=== PATIENT | female | born 1960 | race Caucasian/White ===

== ENCOUNTER 2020-06-02 10:00 | Outpatient (CLI) | payer OTHER, SELFPAY ==
--- NOTE | 2020-06-02 10:14 | MM_ITS ---
WS: [id number] BILATERAL DIGITAL SCREENING MAMMOGRAM WITH CAD CLINICAL INFORMATION: SCREENING HISTORY: Screening mammogram. No current complaints. COMPARISON: TECHNIQUE: Bilateral CC and MLO views. FINDINGS: Fatty-replaced breasts bilaterally. No suspicious focal mass, asymmetry, calcifications, or intern architect ural distortion. No evidence of malignancy. MM/[place] [id number] IMPRESSION: BI-RADS: 1-Negative FOLLOW UP: 1 Year Follow-up Recommend return to annual screening mammography.
== END 2020-06-02 10:01 | disposition home or self-care (01) ==
PROVIDERS: PCP Family Medicine; Visit Provider Family Medicine
DX: Z12.31 Encounter for screening mammogram for malignant neoplasm of breast (principal)
CPT/HCPCS: 77067

== ENCOUNTER 2021-09-06 10:25 | Outpatient (CLI) | payer OTHER, SELFPAY ==
--- NOTE | 2021-09-06 10:46 | MM_ITS ---
WS: [id number] BILATERAL 3D TOMOSYNTHESIS DIGITAL SCREENING MAMMOGRAPHY WITH CAD CLINICAL INFORMATION: SCREENING HISTORY: Screening mammogram. No current complaints. COMPARISON: June 02, 2020 TECHNIQUE: Bilateral CC and MLO views. FINDINGS: Scattered fibroglandular densities bilaterally. No suspicious focal mass, asymmetry, calcifications, or architectural distortion. No evidence of malignancy. MM/[place] [id number] IMPRESSION: BI-RADS: 1-Negative FOLLOW UP: 1 Year Follow-up Recommend return to annual screening mammography.
== END 2021-09-06 10:26 | disposition home or self-care (01) ==
LOC: RADSHAW 10:27
PROVIDERS: PCP Family Medicine; Visit Provider Family Medicine
DX: Z12.31 Encounter for screening mammogram for malignant neoplasm of breast (principal)
CPT/HCPCS: 77063; 77067

== ENCOUNTER 2022-09-12 09:04 | Outpatient (CLI) | payer OTHER, SELFPAY ==
--- NOTE | 2022-09-12 09:12 | MM_ITS ---
WS: [id number] Bilateral screening 3D tomosynthesis digital mammogram, 09/12/2022 Clinical Data: SCREENING Comparison: 09/06/2021, 06/02/2020, 05/12/2019, 03/29/2018, 04/13/2017, 03/02/2016, 02/24/2015, 02/04/2014, 05/01/2012, 06/22/2010, 03/12/2009, 02/26/2008, 01/22/2007. Findings: The breast parenchymal pattern shows fibroglandular tissue No spiculated masses or clustered calcific ations are seen. There are no secondary signs of carcinoma. MM/[place] [id number] Impression: 1. Negative bilateral mammogram unchanged. 2. Recommend annual screening mammograms. BIRADS: 1-Negative FOLLOW UP: 1 Year Follow-up The CAD checker cashier was used.
== END 2022-09-12 09:05 | disposition home or self-care (01) ==
LOC: RAD 09:08
PROVIDERS: PCP Family Medicine; Visit Provider Family Medicine
DX: Z12.31 Encounter for screening mammogram for malignant neoplasm of breast (principal)
CPT/HCPCS: 77063; 77067

== ENCOUNTER 2023-10-08 13:10 | Outpatient (CLI) | payer MEDICARE, SELFPAY ==
--- NOTE | 2023-10-08 13:14 | MM_ITS ---
WS: [id number] BILATERAL 3D TOMOSYNTHESIS DIGITAL SCREENING MAMMOGRAPHY WITH CAD CLINICAL INFORMATION: SCREENING HISTORY: Screening mammogram. No current complaints. COMPARISON: 2022 TECHNIQUE: Bilateral CC and MLO views. FINDINGS: Scattered fibroglandular densities bilaterally. No suspicious focal mass, asymmetry, calcifications, or architectural distortion. No evidence of malignancy. MM/[place] [id number] IMPRESSION: BI-RADS: 1-Negative FOLLOW UP: 1 Year Follow-up Recommend return to annual screening mammography.
== END 2023-10-08 13:11 | disposition home or self-care (01) ==
LOC: RAD 13:10
PROVIDERS: PCP Family Medicine; Visit Provider Family Medicine
DX: Z12.31 Encounter for screening mammogram for malignant neoplasm of breast (principal)
CPT/HCPCS: 77063; 77067

== ENCOUNTER 2024-10-13 11:34 | Outpatient (CLI) | payer MEDICARE, SELFPAY ==
--- NOTE | 2024-10-13 11:39 | MM_ITS ---
WS: [id number] BILATERAL 3D TOMOSYNTHESIS DIGITAL SCREENING MAMMOGRAM WITH CAD CLINICAL INFORMATION: SCREENING HISTORY: Screening mammogram. No current complaints. COMPARISON: 2023 TECHNIQUE: Bilateral CC and MLO views. FINDINGS: Fatty-replaced breasts bilaterally. No suspicious focal mass, asymmetry, calcifications, or architectural distortion. No evidence of malignancy. MM/MM scr BI tomosynthesis [id number] IMPRESSION: DENSITY: The breasts are almost entirely fatty. BI-RADS: 1 - Negative. FOLLOW UP: 1 Year Follow-up Recommend return to annual screening mammography.
== END 2024-10-13 11:35 | disposition home or self-care (01) ==
LOC: RAD 11:35
PROVIDERS: PCP Family Medicine; Visit Provider Family Medicine
DX: L82.1 Other seborrheic keratosis (principal); L81.4 Other melanin hyperpigmentation; H02.72 Madarosis of eyelid and periocular area; L57.8 Other skin changes due to chronic exposure to nonionizing radiation; X32.XXXA Exposure to sunlight, initial encounter; L57.0 Actinic keratosis; D18.01 Hemangioma of skin and subcutaneous tissue; Z80.8 Family history of malignant neoplasm of other organs or systems; D48.5 Neoplasm of uncertain behavior of skin
CPT/HCPCS: 11102; 17000; 77063; 77067; 99203

== ENCOUNTER 2024-10-14 14:25 | Outpatient (CLI) | payer MEDICARE, SELFPAY ==
--- NOTE | 2024-10-14 14:28 | MR_ITS ---
WS: [id number] MRI BRAIN WITH HIGH-RESOLUTION IMAGING THROUGH THE INTERNAL AUDITORY CANALS WITHOUT AND WITH CONTRAST HISTORY: BILATERAL HEARING LOSS,SENORINEURAL COMPARISON: None available. TECHNIQUE: Multiplanar, multisequence imaging is performed through the brain. Additional 3 mm imaging performed in multiple planes through the internal auditory canal. Postcontrast imaging with 20 ml's of MultiHance. No acute intracranial hemorrhage, midline shift, edema or mass effect. Very minimal cerebral atrophy. Mild to moderate scattered T2 and FLAIR signal hyperintensities in the periventricular and subcortical white matter. White matter hyperintensities are symmetric bilaterally. No large infarct. Negative cerebellum. No ischemic change in the christiane. No significant atrophy of the hippocampal formations. Ventricles and extra-axial spaces are normal. No inferior displacement of cerebellar tonsils. Clivus and pituitary gland are normal. Internal and external auditory canals: Unremarkable. Cranial nerves VII and VIII complexes: Unremarkable. No enhancement or mass. 5th cranial nerve root entry zone is normal. Cerebellopontine angles: Normal. Paranasal sinuses: Normal. Mastoid air cells: Normal. Calvarium and scalp: Normal. Visualized ione of Cervantes and dural venous sinuses demonstrate no abnormality. MR/MR iac's wo/w con* [id number] IMPRESSION: 1. No mass or signal abnormality at the cerebellopontine angles or internal au ditory canals. 2. Mild to moderate scattered T2 and FLAIR signal hyperintensities. Differenti al includes microangiopathic disease, hypertension, diabetes and history of smo faina. 3. No prior infarct. 4. Normal hippocampal formations. 5. No intracranial mass.
[2024-10-14] MEDS: gadobenate dimeglumine 20 mL vial IV (16:14)
== END 2024-10-14 14:26 | disposition home or self-care (01) ==
LOC: RAD 14:27
PROVIDERS: PCP Family Medicine; Visit Provider Nurse Practitioner Family
DX: H90.3 Sensorineural hearing loss, bilateral (principal); R93.0 Abnormal findings on diagnostic imaging of skull and head, not elsewhere classified
CPT/HCPCS: 70553

== ENCOUNTER → 2024-11-05 09:58 | Outpatient (BNVA) | payer MEDICARE, SELFPAY | PROVIDERS: PCP Family Medicine; Visit Provider Podiatrist Foot & Ankle Surgery | DX: B35.3 Tinea pedis (principal); L60.3 Nail dystrophy; M20.11 Hallux valgus (acquired), right foot | CPT/HCPCS: 99204 ==

== ENCOUNTER → 2024-11-10 15:04 | Outpatient (BNVA) | payer MEDICARE, SELFPAY | PROVIDERS: PCP Family Medicine; Visit Provider Dermatology | DX: D18.01 Hemangioma of skin and subcutaneous tissue (principal); L81.4 Other melanin hyperpigmentation; C44.612 Basal cell carcinoma of skin of right upper limb, including shoulder; D48.5 Neoplasm of uncertain behavior of skin | CPT/HCPCS: 11102; 17262; 69100; 99213 ==

== ENCOUNTER → 2024-12-02 08:06 | Outpatient (BNVA) | payer MEDICARE, SELFPAY | PROVIDERS: PCP Family Medicine; Visit Provider Dermatology | DX: C44.212 Basal cell carcinoma of skin of right ear and external auricular canal (principal); C44.319 Basal cell carcinoma of skin of other parts of face | CPT/HCPCS: 13132; 17311; 99213 ==

== ENCOUNTER → 2024-12-09 10:54 | Outpatient (BNVA) | payer MEDICARE, SELFPAY | PROVIDERS: PCP Family Medicine; Visit Provider Podiatrist Foot & Ankle Surgery | DX: B35.1 Tinea unguium (principal); B35.3 Tinea pedis; L60.3 Nail dystrophy | CPT/HCPCS: 36415; 80053; 99214 ==

== ENCOUNTER → 2024-12-17 11:52 | Outpatient (BNVA) | payer MEDICARE, SELFPAY | PROVIDERS: PCP Family Medicine; Visit Provider Dermatology | DX: C44.212 Basal cell carcinoma of skin of right ear and external auricular canal (principal); L57.0 Actinic keratosis | CPT/HCPCS: 11642; 13152; 17000 ==

== ENCOUNTER → 2025-01-13 14:38 | Outpatient (BNVA) | payer MEDICARE, SELFPAY | PROVIDERS: PCP Family Medicine; Visit Provider Podiatrist Foot & Ankle Surgery | DX: L60.3 Nail dystrophy (principal) | CPT/HCPCS: 36415; 80053 ==

== ENCOUNTER → 2025-02-18 13:58 | Outpatient (BNVA) | payer MEDICARE, SELFPAY | PROVIDERS: PCP Family Medicine; Visit Provider Podiatrist Foot & Ankle Surgery | DX: B35.1 Tinea unguium (principal) | CPT/HCPCS: 36415; 80053 ==

== ENCOUNTER → 2025-02-20 14:28 | Outpatient (BNVA) | payer MEDICARE, SELFPAY | PROVIDERS: PCP Family Medicine; Visit Provider Nurse Practitioner Family | DX: L82.1 Other seborrheic keratosis (principal); D18.01 Hemangioma of skin and subcutaneous tissue; L81.4 Other melanin hyperpigmentation; L57.8 Other skin changes due to chronic exposure to nonionizing radiation; X32.XXXA Exposure to sunlight, initial encounter; L57.0 Actinic keratosis; Z08 Encounter for follow-up examination after completed treatment for malignant neoplasm; Z85.828 Personal history of other malignant neoplasm of skin; Z80.8 Family history of malignant neoplasm of other organs or systems; D48.5 Neoplasm of uncertain behavior of skin | CPT/HCPCS: 11102; 99213 ==